=== PATIENT | female | born 1965 | race Caucasian/White ===

== ENCOUNTER 2016-10-27 05:36 | Emergency (ER) | payer OTHER ==
--- NOTE | ~2016-10-27 | MR113 ---
[facility] A Service of [facility] RADIOLOGY TEXT RESULTS PATIENT: NICOLLE LOPEZ LOCATION: [facility] : 67 UNIT #: [id number] AGE: [address]: Dick Mello MD SEX: F ORDER DR: [id number] [facility] [address] [place], [place] [address] [id number] MR#: [id number] #: [id number] NAME: NICOLLE LOPEZ : 1965 SEX: F STUDY DATE/TIME: 10/27/2016 7:45 UNIT: [facility] ROOM: STUDY DESCRIPTION: MR Lumbar Wo Contrast Attending Physician: Dick Mello M.D. Ordering Physician: [id number] Blanca Mello Primary Care Physician: Oscar Parnell M.D. MRI CENTER REPORT This report is preliminary unless electronic signature is present. EXAM Lumbar spine MRI HISTORY Back pain onset 10/24/2016 accompanied by vomiting. TECHNIQUE Multiplanar imaging of the lumbar spine was performed with short and long TR. FINDINGS There is a somewhat transitional appearing lumbosacral vertebra that may represent L6. For purposes of numbering on this report the lower most fully formed this will be defined as L5-S1 and the more rudimentary disc below it as S1-S2. This should be correlated with plain films. Based on this numbering, there are mild degenerative changes seen at the upper 3 lumbar discs with disc desiccation but no significant bulging. The L4-5 disc is normal. At L5-S1 there is left-sided disc protrusion or focal herniation within the foramen. It contacts and displaces the exiting nerve root. This could be a potential source for left-sided radicular symptoms. Mild facet arthropathy is seen at L4-5 and L5-S1 more prominent at the L5-S1 level. The conus is normal. There is no evidence of marrow edema or paraspinous mass. IMPRESSION 1. See above for numbering criteria. There is probably a transitional L6/S1 vertebra. The lower most fully formed disc will be defined as L5-S1 and based on this numbering there is a left-sided lateral disc protrusion or small herniation within the foramen at L5-S1. It contacts and displaces the left-sided exiting root. This is a potential source for left-sided radicular symptoms. There are mild STS. [facility] A Service of [facility] RADIOLOGY TEXT RESULTS PATIENT: NICOLLE LOPEZ LOCATION: [facility] : 67 UNIT #: [id number] AGE: [address]: Dick Mello MD SEX: F ORDER DR: degenerative changes in the facets at L4-5 and particularly L5-S1. There are minimal degenerative changes at the upper lumbar discs without bulging or herniation. Dictated by... Moses Cadena M.D. THIS IS AN ELECTRONICALLY VERIFIED REPORT Moses Cadena M.D. at 10/27/2016 4:50 PM CHRISTOPH/carrillo TD: 10/27/2016 09:11 JOB #: [id number] MRI CENTER REPORT Page 1 of 1 COPY
[~2016-10-27 05:36] MED LIST: ALBUTEROL17 G2 INH; BACTRIM DS TABL1 TA1 PO; CIPRO PO; HYDROCHLOROTHIA25 MG PO; IBUPROFEN800 MG PO; LOPRESSOR; MACROBID100 M1 PO; PYRIDIUM PO; VICODIN 5/500 T1 TAB PO; ZOFRAN ODT4 MG SL; ZOFRAN PO; ZOFRANODT PO
[2016-10-27 06:33] LABS: URINE SOURCE CLEAN CATCH
[2016-10-27 06:56] LABS: BASOPHIL% 0.9 % (0-2.5); EOSINOPHIL# 0.2 X10e3 (0-0.7); EOSINOPHIL% 3.8 % (0.0-7.0); HEMATOCRIT 45.2 % (35.0-45.0); HEMOGLOBIN 15.5 gm/dL (12.0-16.0); LYMPHOCYTE# 1.9 X10e3 (1.0-3.5); LYMPHOCYTE% 38.5 % (17.0-45.0); MEAN CELL VOLUME 91.6 FL (83-96); MEAN CORPUSCULAR HEMOGLOBIN 31.3 PG (28-34); MEAN CORPUSCULAR HGB CONC 34.2 g/dL (30-36); MEAN PLATELET VOLUME 7.5 FL (6.5-11.5); MONOCYTE# 0.5 X10e3 (0-1.0); MONOCYTE% 9.8 % (3.0-12.0); NEUTROPHIL# 2.4 X10e3 (1.5-7.1); PLATELET COUNT 215 X10e3 (140-420); RED BLOOD COUNT 4.94 X10e (3.90-5.30); RED CELL DISTRIBUTION WIDTH 13.3 % (11.0-15.5)
[2016-10-27 06:57] LABS: URINE APPEARANCE CLOUDY; URINE BILIRUBIN NEG (NEG); URINE BLOOD NEG (NEG); URINE COLOR DK YELLOW; URINE GLUCOSE NEG (NEG); URINE KETONE TRACE (NEG); URINE LEUKOCYTE ESTERASE 2+ (NEG); URINE NITRATE NEG (NEG); URINE PH 5.5 (5-8); URINE PROTEIN NEG (NEG); URINE SPECIFIC GRAVITY 1.027 (1.003-1.035); URINE UROBILINOGEN 0.2 MG/DL (NEG)
[2016-10-27 06:59] LABS: CULTURE INDICATED? YES; URINE BACTERIA AUWI NEG (NEGATIVE); URINE SQUAMOUS EPITHELIAL CELL MOD /[HPF]; UWBCS1 AUWI 25-50 (0-5)
[2016-10-27 07:11] LABS: DIFF IND NO
[2016-10-27 07:15] LABS: URBCS1 AUWI 0-2 /[HPF] (0-2); URINE AMORPHOUS SEDIMENT AMORP URATES; URINE MUCUS PRESENT; URINE YEAST PRESENT
[2016-10-27 07:26] LABS: ALBUMIN SERUM 4.2 g/dL (3.5-5.0); BILIRUBIN, DIRECT 0.1 mg/dL (0.0-0.2); BILIRUBIN,INDIRECT 0.8 mg/dL (0.0-0.9); BILIRUBIN,TOTAL 0.9 mg/dL (0.2-2.0); BUN/CREATININE RATIO 15.45; CALCIUM SERUM 9.2 mg/dL (8.4-10.2); CREATININE SERUM 1.1 mg/dL (0.6-1.4); GLOM FILT RATE Estimated 58.9 mL/min (>60); POTASSIUM 3.3 mmol/L (3.5-5.1); PROTEIN TOTAL SERUM 6.9 g/dL (6.0-8.3)
== END 2016-10-27 09:35 | disposition home or self-care (01) ==
LOC: CED 05:36
PROVIDERS: Emergency Medicine
DX: M51.26 Other intervertebral disc displacement, lumbar region (principal); R11.10 Vomiting, unspecified; B37.9 Candidiasis, unspecified; J45.909 Unspecified asthma, uncomplicated; Z90.710 Acquired absence of both cervix and uterus; Z88.1 Allergy status to other antibiotic agents; Z88.8 Allergy status to other drugs, medicaments and biological substances; Z79.899 Other long term (current) drug therapy
CPT/HCPCS: 36415; 72148; 80048; 80076; 81003; 83690; 85025; 87086; 87088; 87186; 96361; 96374; 96375; 99284; J1885; J2405